=== PATIENT | male | born 1940 | race Caucasian/White ===

== ENCOUNTER → 2018-12-08 | Day surgery (SDC) | payer MEDICARE, OTHER ==
[2018-12-05 11:01] LABS: Hematocrit 44.7 % (41.0-53.0); Hemoglobin 15.2 g/dL (13.5-17.5); Mean Corpuscular Hemoglobin 32.6 pg (28.0-32.0); Mean Corpuscular Hgb Conc. 34.1 g/dL (32.0-36.0); Mean Corpuscular Volume 95.7 fL (80.0-100.0); Platelet Count (auto) 192 10^3/uL (140-450); Red Blood Cells 4.67 10^6/uL (4.5-5.90); Red Cell Distribution Width 13.6 % (11.8-14.3); White Blood Cell 5.1 10^3/uL (4.4-10.8)
[2018-12-05 11:06] LABS: Urine Bacteria NONE SEEN /hpf (None Seen); Urine Blood Negative /uL (Negative); Urine Mucus FEW (None Seen); Urine Specific Gravity 1.022 (1.001-1.035); Urine WBC 8 /hpf (0 - 3)
[2018-12-05 11:07] LABS: Basophils % (manual) 0 (0.0-2.0); Blast Cells 0; Eosinophils % (manual) 0 (0-7); Metamyelocytes % 0; Myelocytes % 0; Promyelocytes % 0; Reactive Lymphocytes 0
[2018-12-05 11:23] LABS: Albumin 3.7 g/dL (3.4-5.0)
[2018-12-05 11:24] LABS: INR 1.04 (0.9-1.15); Partial Thromboplastin Time 25.7 sec (23.78-33.04); Prothrombin Time 11.1 sec (9.27-12.13)
[2018-12-05 11:27] LABS: BUN/Creatinine Ratio 19.3; Bilirubin, Total 1.3 mg/dL (0.2-1.0); Total Protein 6.9 g/dL (6.4-8.2)
[2018-12-05 12:38] LABS: Band Neutrophils % (manual) 1; Lymphocytes % (manual) 28 (10.0-50.0); Monocytes % (manual) 17 (0-12)
[~2018-12-08] VITALS: Ht 177.8 cm; Wt 68.0 kg
[~2018-12-08] MED LIST: ASPI81TA27 PO; ATO40T PO; CAR125T PO; LISI-706 PO; METF-370 PO; NITR0.4D10 TD; SITA50TA PO; SPIR25TA88 PO
== END | disposition home or self-care (01) ==
LOC: SUR 08:50
PROVIDERS: ATTEND Urology
DX: N40.1 Benign prostatic hyperplasia with lower urinary tract symptoms (principal); Z53.8 Procedure and treatment not carried out for other reasons; E11.9 Type 2 diabetes mellitus without complications; Z88.0 Allergy status to penicillin; Z90.49 Acquired absence of other specified parts of digestive tract; Z98.890 Other specified postprocedural states
CPT/HCPCS: 36415; 80053; 81001; 85007; 85027; 85610; 85730

== ENCOUNTER 2019-02-27 10:16 | Inpatient (IN) | payer MEDICARE, OTHER ==
[~2019-02-27] VITALS: Ht 177.8 cm; Wt 68.6 kg
[2019-02-27] MEDS ORDERED: SODIUM CHLORIDE 0.9% 1,000 ML IV ONE (10:42)
[2019-02-27 11:06] LABS: Hematocrit 48.3 % (41.0-53.0); Hemoglobin 15.8 g/dL (13.5-17.5); Mean Corpuscular Hemoglobin 31.4 pg (28.0-32.0); Mean Corpuscular Hgb Conc. 32.8 g/dL (32.0-36.0); Mean Corpuscular Volume 95.8 fL (80.0-100.0); Platelet Count (auto) 166 10^3/uL (140-450); Red Blood Cells 5.04 10^6/uL (4.5-5.90); Red Cell Distribution Width 13.6 % (11.8-14.3); White Blood Cell 9.4 10^3/uL (4.4-10.8)
[2019-02-27 11:10] LABS: Band Neutrophils % (manual) 0; Basophils % (manual) 0 (0.0-2.0); Blast Cells 0; Eosinophils % (manual) 0 (0-7); Metamyelocytes % 0; Myelocytes % 0; Promyelocytes % 0; Reactive Lymphocytes 0
[2019-02-27 11:12] LABS: Albumin 3.3 g/dL (3.4-5.0); Magnesium 2.4 mg/dL (1.6-2.6); Potassium 4.1 mmol/L (3.5-5.1)
[2019-02-27 11:16] LABS: BUN/Creatinine Ratio 26.3; Bilirubin, Total 0.6 mg/dL (0.2-1.0); Total Protein 6.9 g/dL (6.4-8.2)
[2019-02-27] MEDS ORDERED: FUROSEMIDE 40 MG/4 ML VIAL IV ONE (12:30)
[2019-02-27] MEDS ORDERED: ENOXAPARIN SOD 80 MG/0.8ML SYRINGE SC ONE (12:30)
[2019-02-27] MEDS ORDERED: HYDROcodone-ACET 5/325MG TAB PO PRN (13:15)
[2019-02-27] MEDS ORDERED: ONDANSETRON HCL 4 MG/2 ML VIAL IV PRN (13:15)
[2019-02-27] MEDS ORDERED: NITROGLYCERIN 0.4 MG SL TAB SL PRN (13:15)
[2019-02-27] MEDS ORDERED: MORPHINE SULF INJ 2 MG/ML SYRINGE 1ML IV PRN ×2 (13:15)
[2019-02-27] MEDS ORDERED: ASPirin-EC 81 mg tab PO ONE (13:30)
[2019-02-27] MEDS ORDERED: cefTRIAXone 1GM/50ML D5W 50 ML IV ONE (13:30)
[2019-02-27] MEDS ORDERED: AZITHROMYCIN 500MG/ 250ML 250 ML IV ONE (13:30)
[2019-02-27] MEDS ORDERED: PANTOPRAZOLE 40 MG/10 ML VIAL IV ONE (13:30)
[2019-02-27 14:00] LABS: Lymphocytes % (manual) 8 (10.0-50.0); Monocytes % (manual) 20 (0-12)
[2019-02-27] MEDS: SODIUM CHLORIDE 0.9% 1,000 ML IV SCH (15:57)
[2019-02-27 17:58] VITALS: BP 85/54
[2019-02-27] MEDS ORDERED: SODIUM CHLORIDE 0.9% 500 ML IV ONE (18:15)
[2019-02-27] MEDS ORDERED: ACET-1156 PO (18:26)
[2019-02-27] MEDS ORDERED: NITR0.4D10 TD (18:26)
[2019-02-27 18:45] VITALS: BP 128/69
[2019-02-27 20:00] VITALS: BP 100/77
[2019-02-27] MEDS: ALBUTEROL SULF 2.5 MG/0.5ML(0.5%) NEB SOLN NEB SCH (20:34)
[2019-02-27] MEDS: IPRATROPIUM BROM 0.5 MG/2.5ML INH SOL NEB SCH (20:35)
[2019-02-27] MEDS: ATORVASTATIN 20 MG TAB PO SCH (21:02)
[2019-02-27 21:32] VITALS: BP 128/69
[2019-02-27 22:00] VITALS: BP 100/48
[2019-02-27] MEDS: METOPROLOL TARTRATE 25 MG TAB PO SCH (22:00)
[2019-02-28 05:00] VITALS: BP 112/65
[2019-02-28] MEDS: SODIUM CHLORIDE 0.9% 1,000 ML IV SCH ×2 (06:12→11:27)
[2019-02-28] MEDS: IPRATROPIUM BROM 0.5 MG/2.5ML INH SOL NEB SCH ×3 (06:47→17:51)
[2019-02-28] MEDS: ALBUTEROL SULF 2.5 MG/0.5ML(0.5%) NEB SOLN NEB SCH ×3 (06:47→17:51)
[2019-02-28 08:43] LABS: Hematocrit 45.9 % (41.0-53.0); Hemoglobin 15.8 g/dL (13.5-17.5); Mean Corpuscular Hgb Conc. 34.4 g/dL (32.0-36.0); Mean Corpuscular Volume 93.2 fL (80.0-100.0); Platelet Count (auto) 164 10^3/uL (140-450); Red Blood Cells 4.92 10^6/uL (4.5-5.90); Red Cell Distribution Width 13.8 % (11.8-14.3); White Blood Cell 9.7 10^3/uL (4.4-10.8)
[2019-02-28 08:52] LABS: Basophils % (manual) 0 (0.0-2.0); Blast Cells 0; Eosinophils % (manual) 0 (0-7); Metamyelocytes % 0; Promyelocytes % 0; Reactive Lymphocytes 0
[2019-02-28 08:53] VITALS: BP 116/74
[2019-02-28 09:02] LABS: BUN/Creatinine Ratio 31.4; Potassium 3.4 mmol/L (3.5-5.1)
[2019-02-28 09:03] LABS: Calcium 8.2 mg/dL (8.5-10.1)
[2019-02-28] MEDS ORDERED: cefTRIAXone 1GM/50ML D5W 50 ML IV SCH (10:00)
[2019-02-28] MEDS ORDERED: POTASSIUM CHL 20 Meq TABLET PO ONE (10:45)
[2019-02-28] MEDS ORDERED: POTASSIUM CHL 10% (20 MEQ/15ML) 15ml ORAL SOLN PO ONE (11:00)
[2019-02-28] MEDS ORDERED: NITROGLYCERIN 0.2MG/HR TOPICAL PATCH TD ONE (11:00)
[2019-02-28] MEDS: ASPirin-EC 81 mg tab PO SCH (11:26)
[2019-02-28] MEDS: METOPROLOL TARTRATE 25 MG TAB PO SCH ×3 (11:26→22:00)
[2019-02-28] MEDS: cefTRIAXone 1GM/50ML D5W 50 ML IV SCH (11:26)
[2019-02-28] MEDS: PANTOPRAZOLE 40 MG/10 ML VIAL IV SCH (11:30)
[2019-02-28] MEDS: AZITHROMYCIN 500MG/ 250ML 250 ML IV SCH (11:45)
[2019-02-28 13:12] VITALS: BP 133/56
[2019-02-28 13:33] LABS: Band Neutrophils % (manual) 4; Lymphocytes % (manual) 10 (10.0-50.0); Monocytes % (manual) 17 (0-12); Myelocytes % 2
[2019-02-28] MEDS: ACETAMINOPHEN 500 MG TAB PO PRN (16:20)
[2019-02-28 17:26] VITALS: BP 119/81
[2019-02-28] MEDS: ATORVASTATIN 20 MG TAB PO SCH (21:23)
[2019-02-28 22:00] VITALS: BP 108/91
[2019-02-28] MEDS ORDERED: ALBUMIN 25% 100 ML IV ONE (23:00)
[2019-03-01] MEDS ORDERED: DIGOXIN (250MCG/ML) 2 ML AMPULE IV ONE
[2019-03-01] MEDS: guaiFENesin-DM 100/10mg/5ml SYR PO PRN ×2 (03:00→15:43)
[2019-03-01] MEDS ORDERED: DILTIAZEM HCL 25 MG/5 ML VIAL IV ONE ×2 (03:30→03:31)
[2019-03-01] MEDS: ACETAMINOPHEN 500 MG TAB PO PRN (03:43)
[2019-03-01] MEDS: SODIUM CHLORIDE 0.9% 1,000 ML IV SCH ×2 (03:43→23:04)
[2019-03-01 05:00] VITALS: BP 132/90
[2019-03-01] MEDS: IPRATROPIUM BROM 0.5 MG/2.5ML INH SOL NEB SCH ×3 (06:17→19:22)
[2019-03-01] MEDS: ALBUTEROL SULF 2.5 MG/0.5ML(0.5%) NEB SOLN NEB SCH ×3 (06:17→19:22)
[2019-03-01 06:55] LABS: Hematocrit 40.5 % (41.0-53.0); Hemoglobin 13.8 g/dL (13.5-17.5); Mean Corpuscular Hemoglobin 31.8 pg (28.0-32.0); Mean Corpuscular Hgb Conc. 34.2 g/dL (32.0-36.0); Platelet Count (auto) 143 10^3/uL (140-450); Red Blood Cells 4.36 10^6/uL (4.5-5.90); Red Cell Distribution Width 13.4 % (11.8-14.3); White Blood Cell 5.7 10^3/uL (4.4-10.8)
[2019-03-01 07:08] LABS: Basophils % (manual) 0 (0.0-2.0); Blast Cells 0; Eosinophils % (manual) 0 (0-7); Metamyelocytes % 0; Myelocytes % 0; Promyelocytes % 0; Reactive Lymphocytes 0
[2019-03-01 07:15] LABS: BUN/Creatinine Ratio 27.4; Calcium 8.3 mg/dL (8.5-10.1); Potassium 3.7 mmol/L (3.5-5.1)
[2019-03-01 08:50] VITALS: BP 127/78
[2019-03-01] MEDS ORDERED: DEXTROSE (50%) 50ML SYRG IV PRN (09:30)
[2019-03-01] MEDS: METOPROLOL TARTRATE 25 MG TAB PO SCH ×2 (10:00→20:34)
[2019-03-01] MEDS: ENOXAPARIN SOD 40 MG/0.4 ML SYRINGE SC SCH (10:00)
[2019-03-01] MEDS: ASPirin-EC 81 mg tab PO SCH (10:00)
[2019-03-01] MEDS: NITROGLYCERIN 0.2MG/HR TOPICAL PATCH TD SCH (10:00)
[2019-03-01] MEDS: InsuLIN REG 1unit/0.01ml Soln (100units/ml) SC SCH ×3 (11:30→22:00)
[2019-03-01] MEDS: ACCU-CHEK COMFORT CURVE STRIP VI SCH ×3 (11:30→22:03)
[2019-03-01] MEDS: PANTOPRAZOLE 40 MG/10 ML VIAL IV SCH (13:00)
[2019-03-01] MEDS: cefTRIAXone 1GM/50ML D5W 50 ML IV SCH (13:00)
[2019-03-01 13:24] VITALS: BP 106/74
[2019-03-01 13:47] LABS: Band Neutrophils % (manual) 2; Lymphocytes % (manual) 15 (10.0-50.0); Monocytes % (manual) 21 (0-12)
[2019-03-01] MEDS: AZITHROMYCIN 500MG/ 250ML 250 ML IV SCH (15:00)
[2019-03-01 17:00] VITALS: BP 159/104
[2019-03-01 21:50] VITALS: BP 137/77
[2019-03-01] MEDS: ATORVASTATIN 20 MG TAB PO SCH (22:03)
[2019-03-02] VITALS (8 sets, daily range): BP systolic 112–139; BP diastolic 66–100
[2019-03-02 06:29] LABS: Hematocrit 43.1 % (41.0-53.0); Hemoglobin 14.7 g/dL (13.5-17.5); Mean Corpuscular Hemoglobin 31.6 pg (28.0-32.0); Mean Corpuscular Hgb Conc. 34.2 g/dL (32.0-36.0); Mean Corpuscular Volume 92.5 fL (80.0-100.0); Platelet Count (auto) 151 10^3/uL (140-450); Red Blood Cells 4.66 10^6/uL (4.5-5.90); Red Cell Distribution Width 13.2 % (11.8-14.3); White Blood Cell 6.1 10^3/uL (4.4-10.8)
[2019-03-02] MEDS: ALBUTEROL SULF 2.5 MG/0.5ML(0.5%) NEB SOLN NEB SCH ×3 (06:34→18:37)
[2019-03-02] MEDS: IPRATROPIUM BROM 0.5 MG/2.5ML INH SOL NEB SCH ×3 (06:34→18:37)
[2019-03-02] MEDS: InsuLIN REG 1unit/0.01ml Soln (100units/ml) SC SCH ×4 (06:51→21:46)
[2019-03-02] MEDS: ACCU-CHEK COMFORT CURVE STRIP VI SCH ×4 (06:51→21:46)
[2019-03-02] MEDS: METOPROLOL TARTRATE 25 MG TAB PO SCH ×2 (06:52→21:43)
[2019-03-02 06:56] LABS: Calcium 8.5 mg/dL (8.5-10.1); Potassium 3.6 mmol/L (3.5-5.1)
[2019-03-02 07:00] LABS: BUN/Creatinine Ratio 22.4
[2019-03-02 07:02] LABS: Basophils % (manual) 0 (0.0-2.0); Blast Cells 0; Eosinophils % (manual) 0 (0-7); Metamyelocytes % 0; Myelocytes % 0; Promyelocytes % 0
[2019-03-02] MEDS ORDERED: ADENOSINE 58 MG in GIVE UN-DILUTED 0 ML IV STA (08:31)
[2019-03-02 08:54] LABS: Band Neutrophils % (manual) 2; Lymphocytes % (manual) 16 (10.0-50.0); Monocytes % (manual) 11 (0-12); Reactive Lymphocytes 2
[2019-03-02] MEDS: NITROGLYCERIN 0.2MG/HR TOPICAL PATCH TD SCH (12:20)
[2019-03-02] MEDS: ENOXAPARIN SOD 40 MG/0.4 ML SYRINGE SC SCH (12:20)
[2019-03-02] MEDS: ASPirin-EC 81 mg tab PO SCH (12:20)
[2019-03-02] MEDS: cefTRIAXone 1GM/50ML D5W 50 ML IV SCH (12:20)
[2019-03-02] MEDS: PANTOPRAZOLE 40 MG/10 ML VIAL IV SCH (12:20)
[2019-03-02] MEDS: SODIUM CHLORIDE 0.9% 1,000 ML IV SCH (13:00)
[2019-03-02] MEDS: AZITHROMYCIN 500MG/ 250ML 250 ML IV SCH (13:30)
[2019-03-02] MEDS: ATORVASTATIN 20 MG TAB PO SCH (21:43)
[2019-03-03 05:00] VITALS: BP 128/67
[2019-03-03] MEDS: SODIUM CHLORIDE 0.9% 1,000 ML IV SCH ×2 (05:40→21:55)
[2019-03-03] MEDS: IPRATROPIUM BROM 0.5 MG/2.5ML INH SOL NEB SCH ×3 (06:09→18:51)
[2019-03-03] MEDS: ALBUTEROL SULF 2.5 MG/0.5ML(0.5%) NEB SOLN NEB SCH ×3 (06:09→18:51)
[2019-03-03] MEDS: ACETAMINOPHEN 500 MG TAB PO PRN (06:20)
[2019-03-03] MEDS: InsuLIN REG 1unit/0.01ml Soln (100units/ml) SC SCH ×4 (06:21→21:26)
[2019-03-03] MEDS: ACCU-CHEK COMFORT CURVE STRIP VI SCH ×4 (07:00→21:26)
[2019-03-03 09:08] LABS: Hematocrit 45.4 % (41.0-53.0); Hemoglobin 15.5 g/dL (13.5-17.5); Mean Corpuscular Hemoglobin 31.9 pg (28.0-32.0); Mean Corpuscular Hgb Conc. 34.2 g/dL (32.0-36.0); Mean Corpuscular Volume 93.3 fL (80.0-100.0); Platelet Count (auto) 208 10^3/uL (140-450); Red Blood Cells 4.87 10^6/uL (4.5-5.90); Red Cell Distribution Width 13.3 % (11.8-14.3); White Blood Cell 6.1 10^3/uL (4.4-10.8)
[2019-03-03 09:10] LABS: Basophils % (manual) 0 (0.0-2.0); Blast Cells 0; Eosinophils % (manual) 0 (0-7); Metamyelocytes % 0; Myelocytes % 0; Promyelocytes % 0; Reactive Lymphocytes 0
[2019-03-03 09:24] LABS: Calcium 8.8 mg/dL (8.5-10.1); Potassium 3.8 mmol/L (3.5-5.1)
[2019-03-03 09:30] LABS: Band Neutrophils % (manual) 4; Lymphocytes % (manual) 32 (10.0-50.0); Monocytes % (manual) 8 (0-12)
[2019-03-03] MEDS ORDERED: DIGOXIN (250MCG/ML) 2 ML AMPULE IV ONE (09:45)
[2019-03-03] MEDS ORDERED: AMIODARONE HCL 150 MG in D5W 5% 100 ML IV ONE (09:45)
[2019-03-03] MEDS: AZITHROMYCIN 500MG/ 250ML 250 ML IV SCH (09:49)
[2019-03-03] MEDS: cefTRIAXone 1GM/50ML D5W 50 ML IV SCH (09:49)
[2019-03-03] MEDS: METOPROLOL TARTRATE 25 MG TAB PO SCH ×2 (09:50→21:25)
[2019-03-03] MEDS: ASPirin-EC 81 mg tab PO SCH (09:50)
[2019-03-03] MEDS: PANTOPRAZOLE 40 MG/10 ML VIAL IV SCH (09:50)
[2019-03-03] MEDS: ENOXAPARIN SOD 40 MG/0.4 ML SYRINGE SC SCH (09:50)
[2019-03-03] MEDS ORDERED: AMIODARONE HCL 900 MG in DEXTROSE 500 ML IV SCH ×2 (09:53→15:53)
[2019-03-03] MEDS: NITROGLYCERIN 0.2MG/HR TOPICAL PATCH TD SCH (09:55)
[2019-03-03 16:00] VITALS: BP 135/98
[2019-03-03 20:00] VITALS: BP 137/93
[2019-03-03] MEDS: ATORVASTATIN 20 MG TAB PO SCH (21:25)
[2019-03-04] VITALS: BP 157/96
[2019-03-04 04:00] VITALS: BP 128/77
[2019-03-04 05:57] LABS: Hematocrit 41.1 % (41.0-53.0); Hemoglobin 14.3 g/dL (13.5-17.5); Mean Corpuscular Hemoglobin 31.9 pg (28.0-32.0); Mean Corpuscular Hgb Conc. 34.7 g/dL (32.0-36.0); Mean Corpuscular Volume 91.9 fL (80.0-100.0); Platelet Count (auto) 204 10^3/uL (140-450); Red Blood Cells 4.47 10^6/uL (4.5-5.90); White Blood Cell 6.5 10^3/uL (4.4-10.8)
[2019-03-04] MEDS: ACCU-CHEK COMFORT CURVE STRIP VI SCH ×4 (06:08→21:44)
[2019-03-04] MEDS: InsuLIN REG 1unit/0.01ml Soln (100units/ml) SC SCH ×4 (06:09→21:43)
[2019-03-04 06:10] LABS: Albumin 2.6 g/dL (3.4-5.0); Calcium 8.6 mg/dL (8.5-10.1); Potassium 3.6 mmol/L (3.5-5.1)
[2019-03-04 06:16] LABS: BUN/Creatinine Ratio 25.6; Bilirubin, Total 0.7 mg/dL (0.2-1.0); Total Protein 5.7 g/dL (6.4-8.2)
[2019-03-04 06:23] LABS: Band Neutrophils % (manual) 0; Basophils % (manual) 0 (0.0-2.0); Blast Cells 0; Metamyelocytes % 0; Myelocytes % 0; Promyelocytes % 0; Reactive Lymphocytes 0
[2019-03-04] MEDS: ALBUTEROL SULF 2.5 MG/0.5ML(0.5%) NEB SOLN NEB SCH ×3 (06:30→19:49)
[2019-03-04] MEDS: IPRATROPIUM BROM 0.5 MG/2.5ML INH SOL NEB SCH ×3 (06:30→19:49)
[2019-03-04 08:48] LABS: Eosinophils % (manual) 1 (0-7); Lymphocytes % (manual) 34 (10.0-50.0); Monocytes % (manual) 17 (0-12)
[2019-03-04] MEDS: cefTRIAXone 1GM/50ML D5W 50 ML IV SCH (09:33)
[2019-03-04] MEDS: PANTOPRAZOLE 40 MG/10 ML VIAL IV SCH (10:00)
[2019-03-04] MEDS: NITROGLYCERIN 0.2MG/HR TOPICAL PATCH TD SCH (10:35)
[2019-03-04] MEDS: ASPirin-EC 81 mg tab PO SCH (10:36)
[2019-03-04] MEDS: METOPROLOL TARTRATE 25 MG TAB PO SCH ×2 (10:36→21:48)
[2019-03-04] MEDS: AZITHROMYCIN 250 MG TAB PO SCH (10:37)
[2019-03-04] MEDS: ENOXAPARIN SOD 40 MG/0.4 ML SYRINGE SC SCH (10:37)
[2019-03-04 12:00] VITALS: BP 154/95
[2019-03-04] MEDS: Glucerna Carbsteady SHAKE Vanilla 8oz PO SCH ×2 (12:28→20:44)
[2019-03-04] MEDS: SODIUM CHLORIDE 0.9% 1,000 ML IV SCH (15:00)
[2019-03-04 15:42] VITALS: BP 127/76
[2019-03-04 21:47] VITALS: BP 152/83
[2019-03-04] MEDS: ATORVASTATIN 20 MG TAB PO SCH (21:48)
[2019-03-05 04:56] VITALS: BP 156/91
[2019-03-05] MEDS: ACCU-CHEK COMFORT CURVE STRIP VI SCH ×2 (06:09→11:39)
[2019-03-05] MEDS: InsuLIN REG 1unit/0.01ml Soln (100units/ml) SC SCH ×2 (06:09→11:39)
[2019-03-05] MEDS: SODIUM CHLORIDE 0.9% 1,000 ML IV SCH (06:09)
[2019-03-05] MEDS: IPRATROPIUM BROM 0.5 MG/2.5ML INH SOL NEB SCH ×2 (07:03→11:39)
[2019-03-05] MEDS: ALBUTEROL SULF 2.5 MG/0.5ML(0.5%) NEB SOLN NEB SCH ×2 (07:03→11:39)
[2019-03-05 08:00] VITALS: BP 146/79
[2019-03-05] MEDS: Glucerna Carbsteady SHAKE Vanilla 8oz PO SCH (08:00)
[2019-03-05 09:15] LABS: Hemoglobin 15.7 g/dL (13.5-17.5); Mean Corpuscular Hemoglobin 32.2 pg (28.0-32.0); Mean Corpuscular Hgb Conc. 34.8 g/dL (32.0-36.0); Mean Corpuscular Volume 92.5 fL (80.0-100.0); Platelet Count (auto) 251 10^3/uL (140-450); Red Blood Cells 4.87 10^6/uL (4.5-5.90); Red Cell Distribution Width 13.2 % (11.8-14.3); White Blood Cell 6.3 10^3/uL (4.4-10.8)
[2019-03-05] MEDS: cefTRIAXone 1GM/50ML D5W 50 ML IV SCH (09:25)
[2019-03-05] MEDS: PANTOPRAZOLE 40 MG/10 ML VIAL IV SCH (09:26)
[2019-03-05] MEDS: ASPirin-EC 81 mg tab PO SCH (09:26)
[2019-03-05] MEDS: METOPROLOL TARTRATE 25 MG TAB PO SCH (09:27)
[2019-03-05] MEDS: AZITHROMYCIN 250 MG TAB PO SCH (09:27)
[2019-03-05] MEDS: ENOXAPARIN SOD 40 MG/0.4 ML SYRINGE SC SCH (09:27)
[2019-03-05] MEDS: NITROGLYCERIN 0.2MG/HR TOPICAL PATCH TD SCH (09:29)
[2019-03-05 09:43] LABS: Basophils % (manual) 0 (0.0-2.0); Blast Cells 0; Eosinophils % (manual) 0 (0-7); Metamyelocytes % 0; Myelocytes % 0; Promyelocytes % 0; Reactive Lymphocytes 0
[2019-03-05 09:46] LABS: Albumin 3.1 g/dL (3.4-5.0); Potassium 3.3 mmol/L (3.5-5.1)
[2019-03-05 09:50] LABS: BUN/Creatinine Ratio 13.3; Total Protein 6.8 g/dL (6.4-8.2)
[2019-03-05] MEDS ORDERED: AMIODARONE HCL 200 MG TAB PO SCH (10:00)
[2019-03-05 11:22] LABS: Band Neutrophils % (manual) 6; Lymphocytes % (manual) 23 (10.0-50.0); Monocytes % (manual) 16 (0-12)
[2019-03-05] MEDS ORDERED: MORPHINE SULF INJ 2 MG/ML SYRINGE 1ML IV PRN ×2 (12:30→12:45)
[2019-03-05] MEDS ORDERED: HYDROcodone-ACET 5/325MG TAB PO PRN (12:30)
[2019-03-05] MEDS ORDERED: POTASSIUM CHL 20 Meq TABLET PO ONE (12:30)
[2019-03-05 13:00] VITALS: BP 149/83
[2019-03-05] MEDS ORDERED: MET25T PO (13:05)
[2019-03-05] MEDS ORDERED: AMI200T PO (13:05)
[2019-03-05] MEDS ORDERED: ATOR20TA50 PO (13:05)
[2019-03-05] MEDS ORDERED: ASP81EC PO (13:05)
[2019-03-05] MEDS ORDERED: CLOP75TA28 PO (13:11)
[2019-03-05 13:37] VITALS: BP 146/79
== END 2019-03-05 15:52 | disposition home health service (06) | DRG 682 ==
LOC: ER 10:16 → TELE 13:03 → MERGE 13:03 → TELE-CENTR 17:06 → DOU IN ICU 03-03 14:14 → TELE-WESTW 03-04 18:26
PROVIDERS: ADMIT Nurse Practitioner Acute Care; ATTEND Internal Medicine
DX: N17.0 Acute kidney failure with tubular necrosis (principal); I50.43 Acute on chronic combined systolic (congestive) and diastolic (congestive) heart failure; J18.9 Pneumonia, unspecified organism; I48.1 Persistent atrial fibrillation; I47.1 Supraventricular tachycardia; E44.0 Moderate protein-calorie malnutrition; I13.0 Hypertensive heart and chronic kidney disease with heart failure and stage 1 through stage 4 chronic kidney disease, or unspecified chronic kidney disease; E87.1 Hypo-osmolality and hyponatremia; I48.92 Unspecified atrial flutter; D68.69 Other thrombophilia; E87.6 Hypokalemia; I49.3 Ventricular premature depolarization; E78.5 Hyperlipidemia, unspecified; N18.9 Chronic kidney disease, unspecified; E11.22 Type 2 diabetes mellitus with diabetic chronic kidney disease; E11.21 Type 2 diabetes mellitus with diabetic nephropathy; I25.10 Atherosclerotic heart disease of native coronary artery without angina pectoris; I25.5 Ischemic cardiomyopathy; I70.0 Atherosclerosis of aorta; N40.1 Benign prostatic hyperplasia with lower urinary tract symptoms; Z87.891 Personal history of nicotine dependence; Z79.899 Other long term (current) drug therapy; Z68.21 Body mass index [BMI] 21.0-21.9, adult
CPT/HCPCS: 36415; 71045; 76775; 78452; 80048; 80053; 82962; 83735; 83880; 84484; 85007; 85027; 86141; 93005; 93017; 93306; 94640; 96361; 96365; 96372; 96375; 97116; 97163; 97530; A6257; C9113; G0378; J0153; J0696; J1815; J7060; P9047

== ENCOUNTER 2019-03-16 05:48 | Day surgery (SDC) | payer MEDICARE, OTHER ==
[2019-03-12 11:50] LABS: Basophils # (auto) 0.1 uL; Basophils % (auto) 1.1 % (0.0-2.0); Eosinophils # (auto) 0.2 uL; Hematocrit 42.3 % (41.0-53.0); Hemoglobin 14.1 g/dL (13.5-17.5); Lymphocytes # (auto) 1.4 uL; Lymphocytes % (auto) 23.2 % (10.0-50.0); Mean Corpuscular Hemoglobin 31.1 pg (28.0-32.0); Mean Corpuscular Hgb Conc. 33.4 g/dL (32.0-36.0); Mean Corpuscular Volume 93.2 fL (80.0-100.0); Monocytes # (auto) 0.9 uL; Monocytes % (auto) 15.5 % (0.0-12.0); Neutrophils # (auto) 3.5 uL; Neutrophils % (auto) 57.2 % (37.0-80.0); Nucleated Red Blood Cells % 0.1 %; Platelet Count (auto) 321 10^3/uL (140-450); Red Blood Cells 4.53 10^6/uL (4.5-5.90); Red Cell Distribution Width 13.7 % (11.8-14.3); White Blood Cell 6.1 10^3/uL (4.4-10.8)
[2019-03-12 11:52] LABS: Urine Bacteria FEW /hpf (None Seen); Urine Blood Negative /uL (Negative); Urine Specific Gravity 1.021 (1.001-1.035); Urine WBC 11 /hpf (0 - 3)
[2019-03-12 11:54] LABS: INR 1.03 (0.9-1.15); Partial Thromboplastin Time 25.6 sec (23.78-33.04)
[2019-03-12 12:20] LABS: Potassium 4.1 mmol/L (3.5-5.1)
[2019-03-12 12:35] LABS: Albumin 2.9 g/dL (3.4-5.0); BUN/Creatinine Ratio 15.9; Bilirubin, Total 0.9 mg/dL (0.2-1.0); Calcium 8.8 mg/dL (8.5-10.1); Total Protein 6.7 g/dL (6.4-8.2)
[~2019-03-16] VITALS: Ht 177.8 cm; Wt 68.0 kg
[~2019-03-16 05:48] MED LIST changes: +ACET-1156 PO; +AMI200T PO; -ASPI81TA27 PO; -ATO40T PO; +ATOR20TA50 PO; +CLOP75TA28 PO; +MET25T PO
[2019-03-16] MEDS ORDERED: CIPROFLOXACIN 400MG/200ML 200 ML IV ONE (06:36)
[2019-03-16] MEDS ORDERED: fentaNYL CITRATE 100 MCG/2 ML VL ONE (07:41)
[2019-03-16] MEDS ORDERED: ROCURONIUM 10MG/ML 10ML VIAL IV ONE (07:41)
[2019-03-16] MEDS ORDERED: PROPOFOL 10 MG/ML 20 ML IV ONE (07:44)
[2019-03-16] MEDS ORDERED: SUCCINYLCHOLINE CHLORIDE 20 MG/ML 10ML VIAL IV ONE (07:59)
[2019-03-16] MEDS ORDERED: HYDROmorphone HCL 2 MG/ML VL IV PRN (08:45)
[2019-03-16] MEDS ORDERED: ONDANSETRON HCL 4 MG/2 ML VIAL IV ONE (08:45)
[2019-03-16] MEDS ORDERED: ePHEDrine SULFATE 50 MG/ML AMP IV PRN (08:45)
[2019-03-16] MEDS ORDERED: hydrALAZINE HCL 20 MG/ML VL IV PRN (08:45)
[2019-03-16 10:20] VITALS: BP 163/89
== END 2019-03-16 10:40 | disposition home or self-care (01) ==
LOC: SUR 05:48
PROVIDERS: ATTEND Urology
DX: N40.1 Benign prostatic hyperplasia with lower urinary tract symptoms (principal); H26.8 Other specified cataract; I71.4 Abdominal aortic aneurysm, without rupture; I25.10 Atherosclerotic heart disease of native coronary artery without angina pectoris; E11.36 Type 2 diabetes mellitus with diabetic cataract; I10 Essential (primary) hypertension; Z79.899 Other long term (current) drug therapy; Z98.890 Other specified postprocedural states
CPT/HCPCS: 36415; 52601; 80053; 81001; 82962; 85025; 85610; 85730; 88305; 88342; J0330; J0744; J2704; J3010

== ENCOUNTER → 2019-04-28 | Outpatient (CLI) | payer MEDICARE, OTHER ==
[~2019-04-28] MED LIST changes: +ACET-6 PO; +ASPI81TA27 PO; +ATO40T PO; +CARV6.25 PO
[2019-04-28 09:29] LABS: Hematocrit 44.2 % (41.0-53.0); Hemoglobin 14.9 g/dL (13.5-17.5); Mean Corpuscular Hemoglobin 31.6 pg (28.0-32.0); Mean Corpuscular Hgb Conc. 33.7 g/dL (32.0-36.0); Mean Corpuscular Volume 93.8 fL (80.0-100.0); Platelet Count (auto) 220 10^3/uL (140-450); Red Blood Cells 4.71 10^6/uL (4.5-5.90); Red Cell Distribution Width 15.3 % (11.8-14.3); White Blood Cell 5.4 10^3/uL (4.4-10.8)
[2019-04-28 09:35] LABS: Basophils % (manual) 0 (0.0-2.0); Blast Cells 0; Metamyelocytes % 0; Myelocytes % 0; Promyelocytes % 0; Reactive Lymphocytes 0
[2019-04-28 09:38] LABS: INR 0.99 (0.9-1.15); Partial Thromboplastin Time 24.2 sec (23.64-32.05); Prothrombin Time 10.7 sec (9.06-12.60)
[2019-04-28 09:46] LABS: Potassium 4.5 mmol/L (3.5-5.1)
[2019-04-28 09:59] LABS: BUN/Creatinine Ratio 15.3; Calcium 9.4 mg/dL (8.5-10.1)
[2019-04-28 11:16] LABS: Band Neutrophils % (manual) 6; Eosinophils % (manual) 5 (0-7); Lymphocytes % (manual) 33 (10.0-50.0); Monocytes % (manual) 5 (0-12)
== END | disposition home or self-care (01) ==
LOC: LAB 08:56
PROVIDERS: ATTEND Internal Medicine
DX: Z01.810 Encounter for preprocedural cardiovascular examination (principal); I25.10 Atherosclerotic heart disease of native coronary artery without angina pectoris; I12.9 Hypertensive chronic kidney disease with stage 1 through stage 4 chronic kidney disease, or unspecified chronic kidney disease; E11.22 Type 2 diabetes mellitus with diabetic chronic kidney disease; N18.9 Chronic kidney disease, unspecified
CPT/HCPCS: 36415; 80048; 85007; 85027; 85610; 85730

== ENCOUNTER → 2020-10-07 | Outpatient (CLI) | payer MEDICARE, OTHER ==
[~2020-10-07] MED LIST changes: -ACET-1156 PO; -AMI200T PO; +ASPI-543 PO; -ASPI81TA27 PO; -ATOR20TA50 PO; -CAR125T PO; -MET25T PO; -NITR0.4D10 TD; +NITR0.4D3 TD; -SITA50TA PO
== END | disposition home or self-care (01) ==
LOC: LAB 09:26
PROVIDERS: ATTEND Urology
DX: N40.0 Benign prostatic hyperplasia without lower urinary tract symptoms (principal)
CPT/HCPCS: 84153

== ENCOUNTER 2022-02-12 06:46 | Day surgery (SDC) | payer MEDICARE, OTHER ==
[~2022-02-12] VITALS: Ht 177.8 cm; Wt 63.5 kg
[2022-02-12] VITALS (8 sets, daily range): BP systolic 135–157; BP diastolic 79–91
[~2022-02-12 06:46] MED LIST changes: -NITR0.4D3 TD; +NITR0.4D5 TD; +SPIR25TA PO; -SPIR25TA88 PO
[2022-02-12] MEDS ORDERED: IODIXANOL 320MG/ML 100ML BTL IV ONE ×2 (07:52→09:07)
[2022-02-12] MEDS ORDERED: LIDOCAINE 2%HCL (LOCAL ANESTH.) INJ 10ml MDV ONE (07:52)
[2022-02-12] MEDS ORDERED: SODIUM CHL 0.9% 0 ML ONE (08:48)
[2022-02-12] MEDS ORDERED: fentaNYL CITRATE 100 MCG/2 ML VL ONE (08:48)
[2022-02-12] MEDS ORDERED: ANGIOMAX 250 MG VIAL IV ONE (08:48)
[2022-02-12] MEDS ORDERED: MIDAZOLAM HCL 2MG/2ML 2ml VIAL (1mg/ml) ONE (08:48)
[2022-02-12] MEDS ORDERED: VERAPAMIL 2.5MG/ML INJ 2ML VIAL IV ONE (08:48)
[2022-02-12] MEDS ORDERED: HEPARIN SODIUM (PORCINE) 5000 UNITS/ML 1ML VIAL ONE (08:48)
[2022-02-12] MEDS ORDERED: FAMOTIDINE (10MG/ML) 2ML VL IV ONE (08:49)
[2022-02-12] MEDS ORDERED: methylPREDNISolone SOD SUCC 125 MG/2 ML VL ONE (08:49)
[2022-02-12] MEDS ORDERED: diphenhdrAMINE HCL 50 MG/1 ML VL ONE (08:50)
== END 2022-02-12 12:18 | disposition home or self-care (01) ==
LOC: CATH 06:46
PROVIDERS: ATTEND Internal Medicine
DX: R94.39 Abnormal result of other cardiovascular function study (principal); I25.118 Atherosclerotic heart disease of native coronary artery with other forms of angina pectoris; I10 Essential (primary) hypertension; E78.5 Hyperlipidemia, unspecified; Z86.73 Personal history of transient ischemic attack (TIA), and cerebral infarction without residual deficits; Z95.5 Presence of coronary angioplasty implant and graft; Z87.891 Personal history of nicotine dependence; Z79.02 Long term (current) use of antithrombotics/antiplatelets; Z79.82 Long term (current) use of aspirin; Z20.822 Contact with and (suspected) exposure to COVID-19
CPT/HCPCS: 93458; C1760; C1894; J1200; J1644; J2001; J2250; J2930; J3010; J3490; Q9967; U0003; 99152

== ENCOUNTER 2022-03-05 06:54 | Day surgery (SDC) | payer MEDICARE, OTHER ==
[~2022-03-05] VITALS: Ht 177.8 cm; Wt 61.2 kg
[2022-03-05] MEDS ORDERED: HEPARIN SODIUM (PORCINE) 5000 UNITS/ML 1ML VIAL ONE (09:06)
[2022-03-05] MEDS ORDERED: ANGIOMAX 250 MG VIAL IV ONE (09:06)
[2022-03-05] MEDS ORDERED: fentaNYL CITRATE 100 MCG/2 ML VL ONE (09:06)
[2022-03-05] MEDS ORDERED: SODIUM CHL 0.9% 0 ML ONE (09:07)
[2022-03-05] MEDS ORDERED: LIDOCAINE 2%HCL (LOCAL ANESTH.) INJ 10ml MDV ONE (09:07)
[2022-03-05] MEDS ORDERED: MIDAZOLAM HCL 2MG/2ML 2ml VIAL (1mg/ml) ONE (09:07)
[2022-03-05] MEDS ORDERED: IODIXANOL 320MG/ML 100ML BTL IV ONE (09:09)
[2022-03-05] MEDS ORDERED: methylPREDNISolone SOD SUCC 125 MG/2 ML VL ONE (09:13)
[2022-03-05] MEDS ORDERED: diphenhdrAMINE HCL 50 MG/1 ML VL ONE (09:13)
[2022-03-05] MEDS ORDERED: FAMOTIDINE (10MG/ML) 2ML VL IV ONE (09:17)
== END 2022-03-05 13:48 | disposition home or self-care (01) ==
LOC: CATH 06:54
PROVIDERS: ATTEND Internal Medicine
DX: I25.119 Atherosclerotic heart disease of native coronary artery with unspecified angina pectoris (principal); I71.4 Abdominal aortic aneurysm, without rupture; I77.9 Disorder of arteries and arterioles, unspecified; E78.5 Hyperlipidemia, unspecified; I25.2 Old myocardial infarction; E11.51 Type 2 diabetes mellitus with diabetic peripheral angiopathy without gangrene; I11.0 Hypertensive heart disease with heart failure; I50.9 Heart failure, unspecified; Z98.890 Other specified postprocedural states; Z87.891 Personal history of nicotine dependence; Z79.899 Other long term (current) drug therapy; Z20.822 Contact with and (suspected) exposure to COVID-19
CPT/HCPCS: 36221; 36245; 36415; 75625; 87426; C1760; C1769; C1894; J1200; J1644; J2001; J2250; J2930; J3490; J7030; Q9967; 99152; 99153

== ENCOUNTER → 2022-08-10 | Outpatient (CLI) | payer MEDICARE, OTHER | END | disposition home or self-care (01) | LOC: LAB 11:15 | PROVIDERS: ATTEND Family Medicine | DX: L57.0 Actinic keratosis (principal); C44.01 Basal cell carcinoma of skin of lip; L98.9 Disorder of the skin and subcutaneous tissue, unspecified | CPT/HCPCS: 88302 ==

== ENCOUNTER → 2022-11-08 | Outpatient (CLI) | payer MEDICARE, OTHER | END | disposition home or self-care (01) | LOC: LAB 11:46 | PROVIDERS: ATTEND Urology | DX: R97.20 Elevated prostate specific antigen [PSA] (principal) | CPT/HCPCS: 84153 ==

== ENCOUNTER 2022-11-25 09:52 | Emergency (ER) | payer MEDICARE, OTHER ==
[~2022-11-25] VITALS: Ht 177.8 cm; Wt 63.1 kg
[2022-11-25 10:47] VITALS: BP 178/91
[2022-11-25] MEDS ORDERED: CEPH-510 PO (12:03)
== END 2022-11-25 12:11 | disposition home or self-care (01) ==
LOC: ER 09:52
DX: S60.222A Contusion of left hand, initial encounter (principal); Z79.899 Other long term (current) drug therapy; Z88.0 Allergy status to penicillin; Z88.8 Allergy status to other drugs, medicaments and biological substances; W01.0XXA Fall on same level from slipping, tripping and stumbling without subsequent striking against object, initial encounter; Y93.89 Activity, other specified; Y92.89 Other specified places as the place of occurrence of the external cause; Y99.8 Other external cause status
CPT/HCPCS: 73110